=== PATIENT | female | born 1970 | race American Indian/Alaskan Native ===

== ENCOUNTER 2017-10-10 16:48 | Emergency (ER) | payer SELFPAY ==
[2017-10-10 17:59] LABS: BUN/Creatinine Ratio 14; Blood Urea Nitrogen 10 mg/dL (7-17); Calcium 8.7 mg/dL (8.4-10.2); Hemolysis Index 0
[2017-10-10 18:00] LABS: Basophils % (Auto) 0.3 % (0.0-1.8); Eosinophils # (Auto) 0.9 K/mm3 (0.0-0.4); Eosinophils % (Auto) 7.6 % (0.0-4.3); Hematocrit 36.1 % (30.3-42.9); Lymphocytes # (Auto) 3.7 K/mm3 (1.2-5.4); Mean Corpuscular HGB Conc 31 % (30-34); Mean Corpuscular Hemoglobin 23 pg (28-32); Mean Corpuscular Volume 76 fl (79-97); Monocytes # (Auto) 0.5 K/mm3 (0.0-0.8); Platelet Count 268 K/mm3 (140-440); Red Blood Count 4.77 M/mm3 (3.65-5.03); Red Cell Distribution Width 18.1 % (13.2-15.2)
--- NOTE | 2017-10-10 19:51 | XRay Report ---
FINAL REPORT PROCEDURE: XR CHEST ROUTINE 2V TECHNIQUE: PA and lateral chest radiographs were obtained. CPT 49407 HISTORY: Shortness of breath COMPARISON: No prior studies are available for comparison. FINDINGS: Heart: Normal. Mediastinum/Vessels: Normal. Lungs/Pleural space: No infiltrate, effusion, or pneumothorax. Bony thorax: No acute osseous abnormality. Other: IMPRESSION: No pulmonary infiltrate is identified.
[2017-10-10] MEDS ORDERED: TORADOL IV ONE (20:52)
[2017-10-10] MEDS ORDERED: REGLAN IV ONE (20:52)
[2017-10-10] MEDS ORDERED: BENADRYL IV ONE (20:52)
[2017-10-10] MEDS ORDERED: CATAPRES PO ONE (20:52)
[2017-10-10 21:01] LABS: Alanine Aminotransferase 9 units/L (7-56); Albumin 3.7 g/dL (3.9-5)
[2017-10-10 21:05] LABS: Bilirubin,Direct < 0.2 mg/dL (0-0.2)
--- NOTE | 2017-10-10 21:20 | Cat Scan Report ---
FINAL REPORT PROCEDURE: CT HEAD/BRAIN WO CON TECHNIQUE: Computerized tomography of the head was performed without contrast material. HISTORY: Hypertension and headache COMPARISON: No prior studies are available for comparison. FINDINGS: There is no CT evidence of intracranial mass, hemorrhage, acute territorial infarction, or hydrocephalus. The intracranial arteries are symmetric in density. Calvarium is intact. Visualized paranasal sinuses and mastoids are aerated. IMPRESSION: No CT evidence of acute intracranial abnormality
[2017-10-10] MEDS ORDERED: REGLAN PO ONE (22:00)
[2017-10-10] MEDS ORDERED: LASIX IV ONE (22:07)
[2017-10-10 22:37] LABS: Bilirubin,Urine NEG (Negative); Blood,Urine LG (Negative); Color,Urine Red (Yellow); Mucus,Urine FEW /HPF; Nitrite,Urine NEG (Negative); Protein,Urine <15 mg/dL mg/dL (Negative); Urobilinogen,Urine < 2.0 mg/dL (<2.0)
[2017-10-10] MEDS ORDERED: NACL 0.9% 500 ML 500 ML IV ONE (23:28)
[2017-10-11 00:13] VITALS: BP 118/86
--- NOTE | 2017-10-11 00:16 | Emergency Department Report ---
ED General Adult HPI - General Chief complaint: Pain General Stated complaint: BODYACHES Time Seen by Provider: 10/10/17 17:20 Source: patient Mode of arrival: Ambulatory Limitations: No Limitations - History of Present Illness Initial comments: 47 yo female with the past medical history of arthritis, asthma, migraines, pseudotumor cerebri, anemia, obesity, and PICA presents to the hospital with multiple complaints. Patient received return from [place] 5 days ago. She was here taking care of her mother who had the flu and her father obviously had a stroke. Upon return patient began to have generalized body aches and pain rated 6/10 in intensity. She also complains of left-sided headache that is throbbing which is less severe than her previous migraine. Patient has a history of intermittent lower extremity swelling right it became worse since retiring from [place]. It has improved with elevation. Patient feels like she might be anemic because she's having the urge to eat "white". Patient having dyspnea when lying supine and waking up at night gasping for air. Some improvement with her albuterol inhaler. Patient presents here hypertensive but denies previous known history. Pt is currently on her menstrual cycle Severity scale (0 -10): 6 - Related Data Previous Rx's Medication Instructions Recorded Last Taken Type Hydrochlorothiazide [HCTZ] 25 mg PO QDAY #30 tablet 10/11/17 Unknown Rx Ibuprofen [Motrin] 800 mg PO Q8HR PRN #30 tablet 10/11/17 Unknown Rx traMADol [Ultram 50 MG tab] 50 mg PO Q6HR PRN #20 tablet 10/11/17 Unknown Rx Allergies Allergy/AdvReac Type Severity Reaction Status Date / Time meperidine [From Demerol] Allergy Dizziness Verified 10/10/17 17:02 ED Review of Systems ROS: Stated complaint: BODYACHES Other details as noted in HPI Comment: All other systems reviewed and negative Other: Constitutional: No fevers chills or weight loss Eyes: No eye pain visual changes or discharge ENT: No ear pain or throat pain Neck: Denies pain Respiratory: Occasional cough. Intermittent dyspnea on exertion and orthopnea/ PND Cardiovascular: Denies chest pain, palpitations, syncope GI: Denies abdominal pain, nausea, vomiting, diarrhea : Denies dysuria Musculoskeletal: Generalized pain Skin: Denies rash, lesions, erythema Neurologic: As per HPI Psychiatric: Denies suicidal ideation, hallucinations ED Past Medical Hx - Past Medical History Previous Medical History?: Yes Hx Arthritis: Yes Hx Asthma: Yes Additional medical history: Anemia, Pica (eat dirt), pseudotumor, migraine - Surgical History Past Surgical History?: Yes Additional Surgical History: Left knee surgery., tubaligation, Umbilical hernia repair. Right arm Nexplonon implant - Social History Smoking Status: Never Smoker Substance Use Type: Non Opiate Pain - Medications Home Medications: Home Medications Medication Instructions Recorded Confirmed Last Taken Type Hydrochlorothiazide [HCTZ] 25 mg PO QDAY #30 tablet 10/11/17 Unknown Rx Ibuprofen [Motrin] 800 mg PO Q8HR PRN #30 tablet 10/11/17 Unknown Rx traMADol [Ultram 50 MG tab] 50 mg PO Q6HR PRN #20 tablet 10/11/17 Unknown Rx ED Physical Exam - General Limitations: No Limitations - Other Other exam information: General: No limitations, patient is alert in no acute distress Head exam: Atraumatic, normocephalic Eyes exam: Normal appearance ENT: Moist mucous membrane, normal oropharynx Neck exam: Normal inspection, full range of motion, no meningismus nontender Respiratory exam: Clear to auscultation bilateral, no wheezes, rales, crackles Cardiovascular: Normal rate and rhythm, normal heart sounds Abdomen: Soft, nondistended, and nontender, with normal bowel sounds, no rebound, or guarding Extremity: Full range of motion normal inspection no deformity, and 1+ pitting edema to lower extremities Back: Normal Inspection, full range of motion, no tenderness Neurologic: Alert, oriented x3, cranial nerves intact, no motor or sensory deficit Psychiatric: normal affect, normal mood Skin: Warm, dry, intact ED Course Vital Signs 10/10/17 10/10/17 10/10/17 17:02 21:29 21:34 Temperature 98.1 F 98.3 F Pulse Rate 88 89 89 Respiratory 20 20 Rate Blood Pressure 181/115 190/112 Blood Pressure 190/112 [Left] O2 Sat by Pulse 98 99 Oximetry 10/10/17 10/10/17 10/11/17 22:24 23:27 00:12 Temperature Pulse Rate 81 78 65 Respiratory Rate Blood Pressure Blood Pressure 181/95 104/54 118/86 [Left] O2 Sat by Pulse Oximetry - Reevaluation(s) Reevaluation #1: 10/11/17 01:01 After receiving ED treatment patient blood pressure drops but responded to 500 mL of normal saline and remained stable. Patient reports that her headache has improved with treatment but she still has a sticking sensation to her bones. No distress noted and patient was requesting comfortably in the bed. ED Medical Decision Making - Lab Data Result diagrams: 10/10/17 17:23 10/10/17 17:23 Lab Results 10/10/17 10/10/17 10/10/17 Range/Units 17:23 17:23 17:23 WBC 12.0 H (4.5-11.0) K/mm3 RBC 4.77 (3.65-5.03) M/mm3 Hgb 11.0 (10.1-14.3) gm/dl Hct 36.1 (30.3-42.9) % MCV 76 L (79-97) fl MCH 23 L (28-32) pg MCHC 31 (30-34) % RDW 18.1 H (13.2-15.2) % Plt Count 268 (140-440) K/mm3 Lymph % (Auto) 31.0 (13.4-35.0) % [place] % (Auto) 4.0 (0.0-7.3) % Eos % (Auto) 7.6 H (0.0-4.3) % Baso % (Auto) 0.3 (0.0-1.8) % Lymph # 3.7 (1.2-5.4) K/mm3 [place] # 0.5 (0.0-0.8) K/mm3 Eos # 0.9 H (0.0-0.4) K/mm3 Baso # 0.0 (0.0-0.1) K/mm3 Seg Neutrophils % 57.1 (40.0-70.0) % Seg Neutrophils # 6.8 (1.8-7.7) K/mm3 D-Dimer (0-234) ng/mlDDU Sodium 141 (137-145) mmol/L Potassium 4.1 (3.6-5.0) mmol/L Chloride 102.2 (98-107) mmol/L Carbon Dioxide 26 (22-30) mmol/L Anion Gap 17 mmol/L BUN 10 (7-17) mg/dL Creatinine 0.7 (0.7-1.2) mg/dL Estimated GFR > 60 ml/min BUN/Creatinine Ratio 14 % Glucose 107 H (65-100) mg/dL Calcium 8.7 (8.4-10.2) mg/dL Total Bilirubin 0.20 (0.1-1.2) mg/dL Direct Bilirubin < 0.2 (0-0.2) mg/dL Indirect Bilirubin 0.0 mg/dL AST 15 (5-40) units/L ALT 9 (7-56) units/L Alkaline Phosphatase 97 (35-129) units/L Troponin T < 0.010 (0.00-0.029) ng/mL NT-Pro-B Natriuret Pep 117.7 (0-450) pg/mL Total Protein 7.3 (6.3-8.2) g/dL Albumin 3.7 L (3.9-5) g/dL Albumin/Globulin Ratio 1.0 % Urine Color (Yellow) Urine Turbidity (Clear) Urine pH (5.0-7.0) Ur Specific [place] (1.003-1.030) Urine Protein (Negative) mg/dL Urine Glucose (UA) (Negative) mg/dL Urine Ketones (Negative) mg/dL Urine Blood (Negative) Urine Nitrite (Negative) Urine Bilirubin (Negative) Urine Urobilinogen (<2.0) mg/dL Ur Leukocyte Esterase (Negative) Urine WBC (Auto) (0.0-6.0) /HPF Urine RBC (Auto) (0.0-6.0) /HPF U Epithel Cells (Auto) (0-13.0) /HPF Urine Mucus /HPF 10/10/17 10/10/17 Range/Units 21:21 22:16 WBC (4.5-11.0) K/mm3 RBC (3.65-5.03) M/mm3 Hgb (10.1-14.3) gm/dl Hct (30.3-42.9) % MCV (79-97) fl MCH (28-32) pg MCHC (30-34) % RDW (13.2-15.2) % Plt Count (140-440) K/mm3 Lymph % (Auto) (13.4-35.0) % [place] % (Auto) (0.0-7.3) % Eos % (Auto) (0.0-4.3) % Baso % (Auto) (0.0-1.8) % Lymph # (1.2-5.4) K/mm3 [place] # (0.0-0.8) K/mm3 Eos # (0.0-0.4) K/mm3 Baso # (0.0-0.1) K/mm3 Seg Neutrophils % (40.0-70.0) % Seg Neutrophils # (1.8-7.7) K/mm3 D-Dimer 211.64 (0-234) ng/mlDDU Sodium (137-145) mmol/L Potassium (3.6-5.0) mmol/L Chloride (98-107) mmol/L Carbon Dioxide (22-30) mmol/L Anion Gap mmol/L BUN (7-17) mg/dL Creatinine (0.7-1.2) mg/dL Estimated GFR ml/min BUN/Creatinine Ratio % Glucose (65-100) mg/dL Calcium (8.4-10.2) mg/dL Total Bilirubin (0.1-1.2) mg/dL Direct Bilirubin (0-0.2) mg/dL Indirect Bilirubin mg/dL AST (5-40) units/L ALT (7-56) units/L Alkaline Phosphatase (35-129) units/L Troponin T (0.00-0.029) ng/mL NT-Pro-B Natriuret Pep (0-450) pg/mL Total Protein (6.3-8.2) g/dL Albumin (3.9-5) g/dL Albumin/Globulin Ratio % Urine Color Red (Yellow) Urine Turbidity Clear (Clear) Urine pH 6.0 (5.0-7.0) Ur Specific [place] 1.011 (1.003-1.030) Urine Protein <15 mg/dl (Negative) mg/dL Urine Glucose (UA) Neg (Negative) mg/dL Urine Ketones Neg (Negative) mg/dL Urine Blood Lg (Negative) Urine Nitrite Neg (Negative) Urine Bilirubin Neg (Negative) Urine Urobilinogen < 2.0 (<2.0) mg/dL Ur Leukocyte Esterase Sm (Negative) Urine WBC (Auto) 6.0 (0.0-6.0) /HPF Urine RBC (Auto) 7.0 (0.0-6.0) /HPF U Epithel Cells (Auto) 2.0 (0-13.0) /HPF Urine Mucus Few /HPF - EKG Data -: EKG Interpreted by Me EKG shows normal: sinus rhythm Rate: normal - Radiology Data Radiology results: report reviewed Read by radiologist CT head: No acute findings Chest x-ray: No acute fine - Medical Decision Making Leg edema: No signs of CHF/pulmonary edema, BNP normal, kidney function, and liver functions normal with mild decrease in albumin. Patient instructed to wear compression stockings during the day and keep legs elevated Body aches: Possible early viral syndrome. No signs of sepsis. Influenza testing not available Left-sided headache: Treated with Benadryl, Toradol, and Reglan with improvement. CT head normal PICA symptoms: H&H normal range Dyspnea: No signs of CHF. D-dimer negative combined with low pretest probability and lack of DVT symptoms. Patient with history of asthma. Also suggested outpatient sleep apnea testing giving orthopnea, PND, and obesity. Hypertension: New onset. Significant decrease with clonidine and Lasix in the ED. We'll start hydrochlorothiazide. Patient cautioned on and was is a follow- up a risk of hyponatremia and low potassium while taking this medication. Patient states she has been on it in the past without issues. Bloody urine likely secondary to menstrual cycle. No signs of infection Patient able to ambulate in the ED without distress, no hypoxia on room air - Differential Diagnosis sleep apnea, CHF, PE, pneumonia, viral syndrome, influenza, migraine, ICH Critical Care Time: No Critical care attestation.: If time is entered above; I have spent that time in minutes in the direct care of this critically ill patient, excluding procedure time. ED Disposition Clinical Impression: Leg edema, HTN (hypertension), Pica Disposition: DC-01 TO HOME OR SELFCARE Is pt being admited?: No Does the pt Need Aspirin: No Condition: Stable Instructions: Hypertension (ED), Leg Edema (ED) Additional Instructions: You are being started on hydrochlorothiazide. This is a diuretic/water pill and may cause a drop in your sodium and potassium. It is very important that you follow up with a primary care doctor for further evaluation and monitoring of your blood pressure and urine electrolytes. Take the other medications as prescribed. Return is symptoms worsen. Prescriptions: Hydrochlorothiazide [HCTZ] 25 mg PO QDAY #30 tablet Ibuprofen [Motrin] 800 mg PO Q8HR PRN #30 tablet PRN Reason: Pain traMADol [Ultram 50 MG tab] 50 mg PO Q6HR PRN #20 tablet PRN Reason: Pain Referrals: [facility] [Provider Group] - 2-3 Days BRIAN LYNCH MD [Staff Physician] - 2-3 Days Time of Disposition: 01:12
== END 2017-10-11 02:09 | disposition home or self-care (01) ==
LOC: ED 16:48
DX: I10 Essential (primary) hypertension (principal); F50.89 Other specified eating disorder; M19.90 Unspecified osteoarthritis, unspecified site; Z88.8 Allergy status to other drugs, medicaments and biological substances
CPT/HCPCS: 36415; 70450; 71046; 80048; 80074; 81001; 83880; 84484; 85025; 85379; 93005; 93010; 96374; 96375; 99284; J1200; J1885; J1940; J7040